=== PATIENT | male | born 1970 | race Caucasian/White ===

== ENCOUNTER 2018-11-06 09:09 | Emergency (ER) | payer OTHER ==
[~2018-11-06] VITALS: Ht 167.6 cm; Wt 82.3 kg
[2018-11-06 09:11] VITALS: BP 148/74
--- NOTE | 2018-11-06 09:15 | NUR ---
PT COMPLAING OF BOTH EAR PAIN SINCE LAST TWO MONTHS. PER PT, RT EAR HURTING MORE TODAY , PAIN 10/10 AT THIS TIME. GETS WORSE ON CHEWING OR CLINCHING. STATES GETS WATER INSIDE WHILE SHOWER, CAN FEEL WHILE PALPATING SLEF AT RT JAW AREA. EARCHE IS CONSTANT, GETS TRANSMITTED FORM ONE TO OTHER EAR. MD AT THE BEDSIDE. WILL CONTINUE TO MONITOR PT.
--- NOTE | 2018-11-06 09:15 | NUR ---
Note undone in EDM - 11/06/18 at 0949 by GILA PT COMPLAING OF BOTH EAR PAIN SINCE LAST TWO MONTHS. PER PT, RT ERA HURTING MORE TODAY , PAIN 10/10 AT THIS TIME. GETS WORSE ON CHEWING OR CLINCHING. STATES GETS WATER INSIDE WHILE SHOWER, CAN FEEL WHILE PALPATING SLEF AT RT JAW AREA. EARCHE IS CONSTANT, GETS TRANIMITTED FORM ONE TO OTHER EAR. MD AT THE BEDSIDE. WILL CONTINUE TO MONITOR PT.
--- NOTE | 2018-11-06 09:16 | NUR ---
Patient ambulated to bed 7. RN evaluating patient at bedside.
[2018-11-06 10:10] VITALS: BP 127/63
--- NOTE | 2018-11-06 10:12 | NUR ---
Patient discharged with v/s stable. Written and verbal after care instructions given and explained. Patient alert, oriented and verbalized understanding of instructions. Ambulatory with steady gait. All questions addressed prior to discharge. ID band removed. Patient advised to follow up with PMD. Rx of CIPRO 500 MG, CORTISPORIN AND PREDNISONE 20 MG given. Patient educated on indication of medication including possible reaction and side effects. Opportunity to ask questions provided and answered.
== END 2018-11-06 10:12 | disposition home or self-care (01) ==
LOC: MED 09:09
DX: H65.21 Chronic serous otitis media, right ear (principal); H65.22 Chronic serous otitis media, left ear; F17.200 Nicotine dependence, unspecified, uncomplicated
CPT/HCPCS: 99283